=== PATIENT | female | born 1955 | race Caucasian/White ===

== ENCOUNTER 2016-11-02 15:23 | Outpatient (CLI) | payer BC ==
[2016-11-02 13:29] LABS: BASOPHILS % (AUTO) 0.5 %; EOSINOPHILS # (AUTO) 0.2 10^3/uL (0.0-0.7); EOSINOPHILS % (AUTO) 2.1 %; HCT - HEMATOCRIT 43.4 % (37.0-47.0); HGB - HEMOGLOBIN 14.4 g/dL (12.0-16.0); LYMPHOCYTES # (AUTO) 2.9 10^3/uL (1.5-3.5); LYMPHOCYTES % (AUTO) 27.5 %; MEAN CORPUSCULAR HEMOGLOBIN 28.5 pg (27.0-31.0); MEAN CORPUSCULAR HGB CONC 33.2 g/dL (32.0-36.0); MEAN CORPUSCULAR VOLUME 85.9 fL (81.0-99.0); MEAN PLATELET VOLUME 8.7 fL (7.9-10.8); MONOCYTES # (AUTO) 0.5 10^3/uL (0.0-1.0); MONOCYTES % (AUTO) 4.9 %; NEUTROPHILS # (AUTO) 6.8 10^3/uL (1.5-6.6); RED BLOOD COUNT 5.05 10^6/uL (4.20-5.40); RED CELL DISTRIBUTION WIDTH 13.1 % (12.0-15.0); UNCORRECTED WHITE BLOOD COUNT 10.5 x10^3/uL; WHITE BLOOD COUNT 10.5 x10^3/uL (4.8-10.8)
[2016-11-02 13:56] LABS: ALBUMIN/GLOBULIN RATIO 1.4 (1.0-2.2); BILIRUBIN,TOTAL 0.8 mg/dL (0.2-1.0); BUN - BLOOD UREA NITROGEN 15 mg/dL (6-20); CALCIUM 9.1 mg/dL (8.5-10.3); CARBON DIOXIDE - CO2 28 mmol/L (21-32); CHLORIDE 102 mmol/L (101-111); CHOL/HDL RATIO 2.8 (<4.4); CHOLESTEROL 230 mg/dL; CREATININE 0.8 mg/dL (0.4-1.0); GFR - MDRD 72 (>89); GLUCOSE 74 mg/dL (70-100); HDL CHOLESTEROL 83 mg/dL; LDL/HDL RATIO 1.5 (<4.4); POTASSIUM 3.4 mmol/L (3.5-5.0); SODIUM 138 mmol/L (135-145); TOTAL PROTEIN 7.4 g/dL (6.7-8.2); TRIGLYCERIDES 93 mg/dL; VLDL CHOLESTEROL 19 mg/dL
== END 2016-11-02 15:24 | disposition home or self-care (01) ==
LOC: LAB.R 15:23
PROVIDERS: ATTEND Physician Assistant Medical
DX: Z00.00 Encounter for general adult medical examination without abnormal findings (principal); E55.9 Vitamin D deficiency, unspecified; Z11.9 Encounter for screening for infectious and parasitic diseases, unspecified; E78.2 Mixed hyperlipidemia; Z79.899 Other long term (current) drug therapy; Z72.89 Other problems related to lifestyle; Z20.9 Contact with and (suspected) exposure to unspecified communicable disease
CPT/HCPCS: 80053; 80061; 82306; 84443; 85025; 86787; 86803

== ENCOUNTER 2016-11-09 07:28 | Outpatient (CLI) | payer BC, OTHER ==
--- NOTE | 2016-11-10 12:51 | Mammography Report ---
DIGITAL SCREENING MAMMOGRAM: 11/09/2016 CLINICAL INDICATION: A 61-year-old with history of benign left breast biopsy, for screening. COMPARISON: 07/2015, 02/2010, 10/2007, 05/2006. TECHNIQUE: Routine CC and MLO projections were obtained of the breasts. FINDINGS: The breasts again demonstrate heterogeneously dense fibroglandular parenchyma bilaterally. Coarse, typically benign calcifications are present. No suspicious masses, clustered microcalcificat ions, or regions of architectural distortion are identified. IMPRESSION: BENIGN FINDINGS. RECOMMENDATION: ROUTINE ANNUAL SCREENING UNLESS OTHERWISE CLINICALLY INDICATED. BIRADS CATEGORY 2-BENIGN FINDINGS. STANDARD QUALIFYING STATEMENTS 1. This examination was reviewed with the aid of Computer-Aided Detection (CAD). 2. A negative or benign imaging report should not delay biopsy if clinically suspicious findings are present. Consider surgical consultation if warranted. More than 5% of cancers are not identified by i maging. 3. Dense breasts may obscure an underlying neoplasm. JOB #: [id number] EXT JOB #:[id number]
== END 2016-11-09 07:29 | disposition home or self-care (01) ==
LOC: DI 07:28
PROVIDERS: ATTEND Physician Assistant Medical
DX: Z12.31 Encounter for screening mammogram for malignant neoplasm of breast (principal)
CPT/HCPCS: 77067

== ENCOUNTER 2018-02-13 08:45 | Outpatient (CLI) | payer BC ==
[2018-02-13 11:41] LABS: BASOPHILS # (AUTO) 0.1 10^3/uL (0.0-0.1); BASOPHILS % (AUTO) 0.8 %; EOSINOPHILS # (AUTO) 0.2 10^3/uL (0.0-0.7); EOSINOPHILS % (AUTO) 2.8 %; HGB - HEMOGLOBIN 14.7 g/dL (12.0-16.0); LYMPHOCYTES # (AUTO) 2.7 10^3/uL (1.5-3.5); LYMPHOCYTES % (AUTO) 34.6 %; MEAN CORPUSCULAR HEMOGLOBIN 28.9 pg (27.0-31.0); MEAN CORPUSCULAR HGB CONC 33.6 g/dL (32.0-36.0); MEAN PLATELET VOLUME 8.7 fL (7.9-10.8); MONOCYTES # (AUTO) 0.6 10^3/uL (0.0-1.0); MONOCYTES % (AUTO) 7.1 %; NEUTROPHILS # (AUTO) 4.3 10^3/uL (1.5-6.6); NEUTROPHILS % (AUTO) 54.7 %; PLT - PLATELET COUNT 315 10^3/uL (130-450); RED BLOOD COUNT 5.08 10^6/uL (4.20-5.40); RED CELL DISTRIBUTION WIDTH 13.3 % (12.0-15.0); WHITE BLOOD COUNT 7.8 x10^3/uL (4.8-10.8)
[2018-02-13 12:08] LABS: ALBUMIN 4.1 g/dL (3.2-5.5); ALBUMIN/GLOBULIN RATIO 1.5 (1.0-2.2); ALKALINE PHOSPHATASE 68 IU/L (42-121); ALT ALANINE AMINOTRANSFERASE 25 IU/L (10-60); AST ASPARTATE AMINOTRANSFERASE 22 IU/L (10-42); BILIRUBIN,TOTAL 0.6 mg/dL (0.2-1.0); BUN - BLOOD UREA NITROGEN 15 mg/dL (6-20); CALCIUM 8.8 mg/dL (8.5-10.3); CARBON DIOXIDE - CO2 27 mmol/L (21-32); CHLORIDE 100 mmol/L (101-111); CHOLESTEROL 252 mg/dL; CREATININE 0.8 mg/dL (0.4-1.0); GFR - MDRD 72 (>89); GLUCOSE 81 mg/dL (70-100); HDL CHOLESTEROL 83 mg/dL; LDL CHOLESTEROL,CALCULATED 156 mg/dL; LDL/HDL RATIO 1.9 (<4.4); SODIUM 138 mmol/L (135-145); TOTAL PROTEIN 6.9 g/dL (6.7-8.2); URIC ACID 4.4 mg/dL (2.6-7.2); VLDL CHOLESTEROL 13 mg/dL
== END 2018-02-13 23:59 | disposition home or self-care (01) ==
LOC: LAB.R 08:45
PROVIDERS: ATTEND Physician Assistant Medical
DX: Z00.00 Encounter for general adult medical examination without abnormal findings (principal); E55.9 Vitamin D deficiency, unspecified; Z79.899 Other long term (current) drug therapy; M10.9 Gout, unspecified; E78.2 Mixed hyperlipidemia
CPT/HCPCS: 80053; 80061; 82306; 83721; 84443; 84550; 85025

== ENCOUNTER 2018-03-08 08:00 | Outpatient (CLI) | payer BC | END 2018-03-08 23:59 | disposition home or self-care (01) | LOC: LAB.R 08:00 | PROVIDERS: ATTEND Physician Assistant Medical | DX: E87.6 Hypokalemia (principal) | CPT/HCPCS: 36415; 84132 ==

== ENCOUNTER 2018-03-19 07:44 | Outpatient (CLI) | payer BC ==
--- NOTE | 2018-03-19 13:40 | Mammography Report ---
Reason: SCREENING MAMMO Procedure Date: 03/19/2018 Accession Number: [id number] / [id number] Procedure: DENISE - Screening Mammo w/Tyler CPT Code: FULL RESULT: EXAM: Screening Mammo w/Tyler DATE: 03/19/2018 8:30 AM CLINICAL HISTORY: Routine screening TECHNIQUE: Bilateral CC and MLO views were obtained. COMPARISON: 11/09/2016, 07/07/2015, 02/25/2010, 11/01/2007 FINDINGS: The breast tissue is extremely dense. No definite significant interval change. No suspicious masses, clustered microcalcifications, or regions of architectural distortion are identified. A few scattered nonspecific calcifications are stable. IMPRESSION: Benign findings RECOMMENDATION: Routine annual screening unless otherwise clinically indicated. BIRADS CATEGORY 2: Benign findings STANDARD QUALIFYING STATEMENTS: 1. This examination was not reviewed with the aid of Computer-Aided Detection (CAD). 2. A negative or benign imaging report should not delay biopsy if clinically suspicious findings are present. Consider surgical consultation if warrented. More than 5% of cancers are not identified by imaging. 3. Dense breasts may obscure an underlying neoplasm. 4. This examination was reviewed with the aid of 3D breast imaging (tomosynthesis).
== END 2018-03-19 07:45 | disposition home or self-care (01) ==
LOC: DI 07:44
DX: Z12.31 Encounter for screening mammogram for malignant neoplasm of breast (principal)
CPT/HCPCS: 77063; 77067

== ENCOUNTER 2018-03-19 07:46 | Outpatient (CLI) | payer BC ==
--- NOTE | 2018-03-19 11:06 | DEXA Report ---
Reason: POSTMENOPAUSAL Procedure Date: 03/19/2018 Accession Number: [id number] / [id number] Procedure: DEX - Dexa Spine and/or Hip CPT Code: FULL RESULT: EXAM: Dexa Spine and/or Hip DATE: 03/19/2018 8:11 AM CLINICAL HISTORY: POSTMENOPAUSAL. Taking Boniva. TECHNIQUE: Dual energy x-ray absorptiometry (DXA) was performed on a [employer] System. Regions measured are the AP Spine, femoral neck, and if needed forearm. COMPARISON: 08/17/2015 In accordance with the International Society for Clinical Densitometry (ISCD) guidelines, data from previous exams may be reanalyzed using current recommendations and techniques. This is done to allow a more accurate basis for comparison with the current study. FINDINGS: The data for the lumbar spine is as follows: BMD (g/cm/cm) T-SCORE Z-SCORE REGION L1 0.883 -2.1 -0.8 L2 0.837 -3.0 -1.7 L3 0.943 -2.1 -0.8 L4 0.936 -2.2 -0.9 TOTAL 0.901 -2.3 -1.0 NOTE: All evaluable vertebrae are used for classification The data for the hip is as follows: BMD (g/cm/cm) T-SCORE Z-SCORE REGION Neck 0.825 -1.5 -0.3 TOTAL 0.826 -1.4 -0.5 NOTE: The femoral neck or total proximal femur, whichever is lowest, is used for classification. DXA RESULTS SUMMARY: Spine SCAN DATE AGE BMD CHANGE VS CHANGE VS PREVIOUS PREVIOUS % 03/19/2018 64.7 0.901 -0.014 -1.5 08/17/2015 60.1 0[age]915 * Denotes significant change at the 95% confidence level. Denotes dissimilar scan types or analysis methods. DXA RESULTS SUMMARY: Hip SCAN DATE AGE BMD CHANGE VS CHANGE VS PREVIOUS PREVIOUS % 03/19/2018 64.7 0.826 -0.048* -5.5* 08/17/2015 62.1 0.874 * Denotes significant change at the 95% confidence level. Denotes dissimilar scan types or analysis methods. IMPRESSION: THE WHO CLASSIFICATION BASED ON THE INTERNATIONAL REFERENCE STANDARD IS OSTEOPENIA. THE FRACTURE RISK IS INCREASED. There has been a statistically significant 5.5% decrease in left hip bone mineral density since 08/17/2015. RECOMMENDATION: Patients with diagnosis of osteoporosis or osteopenia should have regular bone mineral density assessment. For those eligible for Medicare, routine testing is allowed once every 2 years. Testing frequency can be increased for patients who have rapidly progressing disease or for those who are receiving medical therapy to restore bone mass. COMMENT: World Health Organization (WHO) definitions for osteoporosis and osteopenia: NORMAL BMD: T-score at -1.0 or higher, fracture risk is low OSTEOPENIA BMD: T-score between -1.0 and -2.5, fracture risk is increased. OSTEOPOROSIS BMD: T-score at -2.5 or lower, fracture risk is high. National Osteoporosis Foundation recommends: 1. Obtain adequate dietary calcium (at least 1200 mg per day) and vitamin D (400-800 international units per day). 2. Participate, as appropriate, in regular weightbearing and muscle-strengthening exercise. 3. Avoid tobacco use and reduce alcohol and caffeine intake. 4. For more detailed information see the website at www.NOF.org.
== END 2018-03-19 07:47 | disposition home or self-care (01) ==
LOC: DI 07:46
PROVIDERS: ATTEND Physician Assistant Medical
DX: M85.89 Other specified disorders of bone density and structure, multiple sites (principal)
CPT/HCPCS: 77080

== ENCOUNTER 2018-03-23 10:59 | Outpatient (CLI) | payer BC ==
[2018-03-23 11:33] LABS: CREATININE,URINE 37.6 mg/dL
== END 2018-03-23 11:00 | disposition home or self-care (01) ==
LOC: LAB 10:59
PROVIDERS: ATTEND Physician Assistant Medical
DX: E87.6 Hypokalemia (principal)
CPT/HCPCS: 36415; 82570; 83735; 84133; 84300

== ENCOUNTER 2018-04-08 09:44 | Day surgery (SDC) | payer BC ==
[2018-04-08] MEDS ORDERED: LACTATED RINGERS 1,000 ML IV ONE (10:24)
[2018-04-08] MEDS ORDERED: fentaNYL 250 MCG/5 ML VIAL IVP ONE (12:16)
[2018-04-08] MEDS ORDERED: MIDAZOLAM 2 MG/2 ML VIAL IVP ONE (12:16)
[2018-04-08 13:41] VITALS: BP 138/80
== END 2018-04-08 09:45 | disposition home or self-care (01) ==
LOC: SDS 09:44
PROVIDERS: ATTEND Surgery
PROC: 0DBK8ZZ Excision of Ascending Colon, Via Natural or Artificial Opening Endoscopic (ICD-10-PCS; principal; 2018-04-08 11:15)
DX: D12.2 Benign neoplasm of ascending colon (principal); K64.8 Other hemorrhoids; E78.5 Hyperlipidemia, unspecified; M85.80 Other specified disorders of bone density and structure, unspecified site; Z87.440 Personal history of urinary (tract) infections; Z86.19 Personal history of other infectious and parasitic diseases
CPT/HCPCS: 45385; J3010; J7120

== ENCOUNTER 2019-02-25 08:59 | Outpatient (CLI) | payer MEDICARE, BC | END 2019-02-25 09:00 | disposition home or self-care (01) | LOC: LAB 08:59 | PROVIDERS: ATTEND Ophthalmology | DX: H02.533 Eyelid retraction right eye, unspecified eyelid (principal); H02.536 Eyelid retraction left eye, unspecified eyelid | CPT/HCPCS: 36415; 83519; 84443; 85651; 86038; 86140 ==

== ENCOUNTER 2019-04-12 15:31 | Emergency (ER) | payer MEDICARE, BC ==
[2019-04-12 15:42] VITALS: BP 124/65
== END 2019-04-12 16:20 | disposition left against medical advice (07) ==
LOC: ED 15:31
DX: Z53.21 Procedure and treatment not carried out due to patient leaving prior to being seen by health care provider (principal)

== ENCOUNTER 2019-05-16 07:58 | Outpatient (CLI) | payer MEDICARE, BC ==
[2019-05-16 08:17] LABS: BASOPHILS # (AUTO) 0.1 10^3/uL (0.0-0.1); BASOPHILS % (AUTO) 0.7 %; EOSINOPHILS # (AUTO) 0.2 10^3/uL (0.0-0.7); EOSINOPHILS % (AUTO) 2.8 %; HGB - HEMOGLOBIN 13.4 g/dL (12.0-16.0); LYMPHOCYTES # (AUTO) 3.5 10^3/uL (1.5-3.5); LYMPHOCYTES % (AUTO) 40.8 %; MEAN CORPUSCULAR HEMOGLOBIN 28.7 pg (27.0-31.0); MEAN CORPUSCULAR HGB CONC 32.4 g/dL (32.0-36.0); MEAN CORPUSCULAR VOLUME 88.4 fL (81.0-99.0); MEAN PLATELET VOLUME 9.8 fL (7.9-10.8); MONOCYTES # (AUTO) 0.7 10^3/uL (0.0-1.0); MONOCYTES % (AUTO) 8.3 %; NEUTROPHILS # (AUTO) 4.1 10^3/uL (1.5-6.6); NEUTROPHILS % (AUTO) 47.1 %; PLT - PLATELET COUNT 319 10^3/uL (130-450); RED BLOOD COUNT 4.67 10^6/uL (4.20-5.40); RED CELL DISTRIBUTION WIDTH 13.9 % (12.0-15.0); WHITE BLOOD COUNT 8.7 x10^3/uL (4.8-10.8)
[2019-05-16 08:38] LABS: ALBUMIN 3.9 g/dL (3.2-5.5); ALBUMIN/GLOBULIN RATIO 1.3 (1.0-2.2); ALKALINE PHOSPHATASE 65 IU/L (42-121); ALT ALANINE AMINOTRANSFERASE 24 IU/L (10-60); AST ASPARTATE AMINOTRANSFERASE 26 IU/L (10-42); BILIRUBIN,TOTAL 0.6 mg/dL (0.2-1.0); BUN - BLOOD UREA NITROGEN 20 mg/dL (6-20); CALCIUM 8.6 mg/dL (8.5-10.3); CARBON DIOXIDE - CO2 28 mmol/L (21-32); CHLORIDE 101 mmol/L (101-111); CHOL/HDL RATIO 3.2 (<4.4); CHOLESTEROL 257 mg/dL; CREATININE 0.8 mg/dL (0.4-1.0); GLUCOSE 93 mg/dL (70-100); HDL CHOLESTEROL 81 mg/dL; LDL CHOLESTEROL,CALCULATED 164 mg/dL; SODIUM 135 mmol/L (135-145); VLDL CHOLESTEROL 12 mg/dL
== END 2019-05-16 07:59 | disposition home or self-care (01) ==
LOC: LAB 07:58
PROVIDERS: ATTEND Nurse Practitioner
DX: Z00.00 Encounter for general adult medical examination without abnormal findings (principal); R19.7 Diarrhea, unspecified; E55.9 Vitamin D deficiency, unspecified; E87.6 Hypokalemia; E78.5 Hyperlipidemia, unspecified
CPT/HCPCS: 36415; 80053; 80061; 83721; 83735; 85025

== ENCOUNTER 2022-07-27 11:49 | Emergency (ER) | payer MEDICARE, BC ==
[2022-07-27 12:40] LABS: BASOPHILS # (AUTO) 0.1 10^3/uL (0.0-0.1); BASOPHILS % (AUTO) 0.6 %; EOSINOPHILS # (AUTO) 0.1 10^3/uL (0.0-0.7); EOSINOPHILS % (AUTO) 1.2 %; HCT - HEMATOCRIT 45.9 % (37.0-47.0); HGB - HEMOGLOBIN 14.9 g/dL (12.0-16.0); LYMPHOCYTES # (AUTO) 2.9 10^3/uL (1.5-3.5); LYMPHOCYTES % (AUTO) 28.9 %; MEAN CORPUSCULAR HEMOGLOBIN 28.8 pg (27.0-31.0); MEAN CORPUSCULAR HGB CONC 32.5 g/dL (32.0-36.0); MEAN CORPUSCULAR VOLUME 88.6 fL (81.0-99.0); MEAN PLATELET VOLUME 9.6 fL (7.9-10.8); MONOCYTES # (AUTO) 0.9 10^3/uL (0.0-1.0); MONOCYTES % (AUTO) 8.8 %; NEUTROPHILS % (AUTO) 60.3 %; PLT - PLATELET COUNT 335 10^3/uL (130-450); RED BLOOD COUNT 5.18 10^6/uL (4.20-5.40); RED CELL DISTRIBUTION WIDTH 12.6 % (12.0-15.0)
[2022-07-27 13:02] LABS: ALBUMIN 4.1 g/dL (3.2-5.5); ALBUMIN/GLOBULIN RATIO 1.3 (1.0-2.2); BILIRUBIN,TOTAL 0.8 mg/dL (0.2-1.0); CREATININE 0.9 mg/dL (0.4-1.0); POTASSIUM 3.2 mmol/L (3.5-5.0); TOTAL PROTEIN 7.3 g/dL (6.7-8.2)
[2022-07-27] MEDS ORDERED: iohexoL-300 100 ML VIAL ONE (13:26)
--- NOTE | 2022-07-27 14:45 | CT Report ---
PROCEDURE: ABDOMEN/PELVIS WO INDICATIONS: LLQ abd pain TECHNIQUE: A CT scan of the abdomen and pelvis was performed without the use of intravenous contrast. Images we re recorded and evaluated at appropriate window settings. Reformats: coronal and sagittal. For radiat ion dose reduction, the following was used: automated exposure control, adjustment of mA and/or kV ac cording to patient size. COMPARISON: None. FINDINGS: Image quality: Excellent. Lung bases and heart: Trace pericardial effusion. Liver: No solid mass. Gallbladder and biliary tree: Spleen: No splenomegaly. Pancreas: No pancreatic ductal dilation. Adrenals: No adrenal nodule. Kidneys and ureters: No hydronephrosis. No renal cystic lesion which requires follow up. No solid mas s. Bowel and peritoneum: No bowel distension. No pathologic free fluid. Lymph nodes: No central or retroperitoneal adenopathy. Vessels: No infrarenal aortic aneurysm. PELVIS Reproductive organs: Unremarkable. Bladder: No wall thickness, accounting for underdistention. Pelvic lymph nodes: No pelvic adenopathy by size criteria. Bones: No aggressive osseous abnormality. Other: No significant ventral or inguinal hernia. IMPRESSION: No visualized inflammatory change. No visualized obstruction. Reviewed by: Leticia Lee MD on 07/27/2022 2:43 PM PDT Approved by: Leticia Lee MD on 07/27/2022 2:43 PM PDT Station ID: [id number]
[2022-07-27 15:03] VITALS: BP 142/93
--- NOTE | 2022-07-27 15:09 | ED Physician Documentation ---
History of Present Illness - Stated complaint Stated Complaint: FEMALE GI - Chief complaint Chief Complaint: Abd Pain - History obtained from History obtained from: Patient - Additonal information Additional information: The patient is sent to the emergency department from the walk-in clinic for chief complaint of diarrhea for 2 weeks left lower abdominal discomfort. They were concerned that the patient might have diverticulitis and sent her here for further evaluation. The patient states she just has not abiding discomfort in her left lower quadrant. She denies nausea or vomiting. No fevers or chills. No blood in her stools. No history of diverticulitis previously. No urinary symptoms. No other complaints at this time. PD PAST MEDICAL HISTORY - Past Medical History Past Medical History: Yes Cardiovascular: High cholesterol Respiratory: None Endocrine/Autoimmune: None GI: Hemorrhoids, Hepatitis : None, Chronic bladder infection HEENT: None Psych: None Musculoskeletal: Osteopenia Derm: None - Past Surgical History General: Colonoscopy Ortho:  /AGENT BROKER: Hysterectomy HEENT: Cataracts - Present Medications Home Medications: Ambulatory Orders Medication Instructions Recorded Confirmed Ascorbic Acid [Vitamin C] 1,000 mg PO DAILY 04/08/18 04/08/18 Calcium Carbonate [[id number]] 500 mg PO 04/08/18 Chromium Picolinate 1,000 mcg PO 04/08/18 Phentermine HCl 37.5 mg PO 04/08/18 Red Yeast Rice 600 mg PO 04/08/18 Vitamin E 400 unit PO BID 04/08/18 04/08/18 - Allergies Allergies/Adverse Reactions: Allergies Allergy/AdvReac Type Severity Reaction Status Date / Time No Known Drug Allergies Allergy Verified 07/27/22 12:14 - Social History Does the pt smoke?: No Smoking Status: Never smoker PD ED PE NORMAL - Vitals Vital signs reviewed: Yes - General General: Alert and oriented X 3, No acute distress, Well developed/nourished - HEENT HEENT: Atraumatic, PERRL, EOMI, Moist mucous membranes - Neck Neck: Supple, no meningeal sign - Cardiac Cardiac: RRR, No murmur, Strong equal pulses - Respiratory Respiratory: No respiratory distress, Clear bilaterally - Abdomen Abdomen: Soft, Non distended, Other (Mild left lower quadrant abdominal tenderness, no rebound or guarding.) - Derm Derm: Normal color, Warm and dry, No rash - Extremities Extremities: No deformity - Neuro Neuro: Alert and oriented X 3 - Psych Psych: Normal mood, Normal affect Results - Vitals Vitals: Oxygen O2 Source Room air - Labs Labs: Laboratory Tests 07/27/22 07/27/22 12:35 12:35 WBC 10.0 RBC 5.18 Hgb 14.9 Hct 45.9 MCV 88.6 MCH 28.8 MCHC 32.5 RDW 12.6 Plt Count 335 MPV 9.6 Neut # (Auto) 6.0 Lymph # (Auto) 2.9 Garrard # (Auto) 0.9 Eos # (Auto) 0.1 Baso # (Auto) 0.1 Absolute Nucleated RBC 0.00 Nucleated RBC % 0.0 Sodium 140 Potassium 3.2 L Chloride 105 Carbon Dioxide 27 Anion Gap 8.0 BUN 14 Creatinine 0.9 Estimated GFR (MDRD) 62 L Glucose 93 Calcium 10.0 Total Bilirubin 0.8 AST 17 ALT 15 Alkaline Phosphatase 60 Total Protein 7.3 Albumin 4.1 Globulin 3.2 Albumin/Globulin Ratio 1.3 Lipase 44 - Rads (name of study) CT abdomen and pelvis Relevant Findings:: Final report received, See rad report (No acute findings) PD Medical Decision Making - ED course Complexity details: reviewed results, re-evaluated patient, considered differential, d/w patient ED course: The patient was evaluated with laboratory studies including CBC and ER abdominal panel, both which were Ordered and reviewed by me, and found to be negative. CT scan of the abdomen pelvis was also performed and found to be negative. Patient is deemed stable for discharge home. I discussed with her that it is still possible that her diarrhea is viral and just may be a longer lasting variety. However, if she does not begin to notice resolution in the next week, she will need to follow-up with her primary doctor to discuss further management, possibly with GI referral or colonoscopy. We have discussed home management of symptoms as well as usual indications for return. Departure - Departure Disposition: 01 Home, Self Care Clinical Impression: Diarrhea Qualifiers: Diarrhea type: unspecified type Qualified Code(s): R19.7 - Diarrhea, unspecified Condition: Stable Instructions: ED Diet Vomiting Diarrhea Comments: Your CT scan does not show any evidence of diverticulitis or any other concerning cause of your diarrhea. It is not entirely clear why your diarrhea has lasted so long, though it may be just a prolonged viral course that will ultimately pass on its own. Please follow-up with your doctor to discuss whether you should have a colonoscopy done to determine whether there is any thing else going on causing your diarrhea. You have been not been able to produce a stool sample here in the emergency department, but stool testing would be another modality of evaluation of your diarrhea, should it continue. Discharge Date/Time: 07/27/22 15:15
== END 2022-07-27 15:15 | disposition home or self-care (01) ==
LOC: ED 11:49
DX: R19.7 Diarrhea, unspecified (principal)
CPT/HCPCS: 36415; 80053; 83690; 85025; 99284